=== PATIENT | male | born 1960 | race Hispanic/Latino ===

== ENCOUNTER → 2024-11-11 | Outpatient (CLI) | payer OTHER, MEDICARE ==
--- NOTE | 2024-11-11 15:24 | HMCIMG ---
MR SPINAL CANAL, CERV WO CON HISTORY: Pain COMPARISON: None TECHNIQUE: MRI of the cervical spine was performed utilizing multiple pulse sequences in axial, coronal and sagittal plane. Patient was not given contrast through intravenous route. FINDINGS: No abnormal signal intensity is seen of the visualized bony structure. No loss of vertebral height is seen. There is reversal of normal lordotic cervical curvature which may be related to muscle spasm or positioning. Degenerative disc signals are present at all cervical spine levels. Cerebellar tonsils are in normal position. The cervical cord is of normal signal intensity without cord compression or impingement. At the C3-4 level, there is mild annular disc bulge causing anterior CSF space effacement without associated neural foraminal stenosis. The central canal measures approximately 8.38 mm in its anterior posterior dimension. At the C4-5 level, there is mild annular disc bulge causing anterior CSF space effacement without associated neural foraminal stenosis. The central canal measures approximately 7 mm in its anterior posterior dimension. At the C5-6 level, there is mild annular disc bulge causing anterior CSF space effacement without associated neural foraminal stenosis. The central canal measures approximately 5.8 mm in its anterior posterior dimension. At the C6-7 level, there is mild annular disc bulge causing anterior CSF space effacement without associated neural foraminal stenosis. The central canal measures approximately 7 mm in its anterior posterior dimension. IMPRESSION: 1. DJD with cervical spine spondylosis
== END | disposition home or self-care (01) ==
LOC: RAH 12:52
PROVIDERS: ATTEND Family Medicine
DX: M47.22 Other spondylosis with radiculopathy, cervical region (principal); M50.11 Cervical disc disorder with radiculopathy, high cervical region
CPT/HCPCS: 72141